=== PATIENT | male | born 1970 | race Caucasian/White ===

== ENCOUNTER 2019-08-29 06:15 | Emergency (ER) | payer OTHER ==
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
== END 2019-08-29 07:30 | disposition home or self-care (01) ==
LOC: MW.ED 06:15
DX: S02.2XXA Fracture of nasal bones, initial encounter for closed fracture (principal); S01.81XA Laceration without foreign body of other part of head, initial encounter; S61.412A Laceration without foreign body of left hand, initial encounter; S61.411A Laceration without foreign body of right hand, initial encounter; V44.5XXA Car driver injured in collision with heavy transport vehicle or bus in traffic accident, initial encounter; Y92.410 Unspecified street and highway as the place of occurrence of the external cause
CPT/HCPCS: 70450; 70450-26; 70486; 70486-26; 99284; 99284-25